=== PATIENT | male | born 1980 | race Caucasian/White ===

== ENCOUNTER 2019-09-13 06:09 | Inpatient (IN) | payer OTHER ==
[~2019-09-13] VITALS: Ht 175.3 cm; Wt 85.0 kg
[2019-09-13] MEDS ORDERED: SODIUM CHLORIDE 0.9% 1,000 ML IV ONE (07:41)
[2019-09-13 08:07] LABS: BASOPHILS % 0.3 % (0.0-2.0); EOSINOPHILS % 0.2 % (0.0-5.0); HEMATOCRIT. 46.4 % (42.0-52.0); HEMOGLOBIN. 15.7 g/dL (14.0-18.0); LYMPHOCYTES % 7.5 % (20.0-50.0); MEAN CORPUSCULAR HEMOGLOBIN 29.5 pg (28.0-32.0); MEAN CORPUSCULAR VOLUME 86.9 fL (80.0-94.0); MEAN PLATELET VOLUME 8.7 fl (7.4-10.4); MONOCYTES % 5.1 % (2.0-8.0); NEUTROPHILS % 86.9 % (40.0-76.0); PLATELET 296 x1000/uL (130-400); RED BLOOD CELL COUNT 5.34 mill/uL (4.7-6.1); RED CELL DISTRIBUTION WIDTH 13.2 % (11.6-14.6)
[2019-09-13 08:14] LABS: CHLORIDE 106 mEq/L (98-107)
[2019-09-13 08:19] LABS: ETHANOL BLOOD < 10 mg/dL
[2019-09-13 09:51] LABS: *BARBITURATES SCREEN URINE NEGATIVE (NEGATIVE); *BENZODIAZEPINES SCREEN URINE NEGATIVE (NEGATIVE); *COCAINE SCREEN URINE NEGATIVE (NEGATIVE); METHADONE URINE SCREEN NEGATIVE (NEGATIVE)
[2019-09-13 09:52] LABS: CANNABINOID URINE SCREEN NEGATIVE (NEGATIVE); OPIATES URINE SCREEN NEGATIVE (NEGATIVE); PHENCYCLIDINE URINE SCREEN NEGATIVE (NEGATIVE)
[2019-09-13 09:53] LABS: *AMPHETAMINES SCREEN URINE NEGATIVE (NEGATIVE)
[2019-09-13] MEDS ORDERED: ASPIRIN 81MG TABLET PO ONE (12:15)
[2019-09-13 12:26] LABS: CREATINE KINASE MB FRACTION 1.7 ng/mL (0.5-3.6)
[2019-09-13] MEDS ORDERED: IPRATROPIUM/ALBUTEROL 0.5-3(2.5)MG/3ML NEB NEB PRN (14:15)
[2019-09-13] MEDS ORDERED: ACETAMINOPHEN 650MG SUPP PR PRN (14:15)
[2019-09-13] MEDS ORDERED: DOCUSATE SODIUM 100MG CAPSULE PO PRN (14:15)
[2019-09-13] MEDS ORDERED: ONDANSETRON HCL 4MG/2ML INJ IV PRN (14:15)
[2019-09-13] MEDS ORDERED: MAGNESIUM/ALUMINUM HYDROXIDE/SIMETHICONE 30ML UDC PO PRN (14:15)
[2019-09-13] MEDS ORDERED: ACETAMINOPHEN 325MG TABLET PO PRN (14:15)
[2019-09-13] MEDS ORDERED: DIPHENHYDRAMINE 50MG/ML VIAL IV PRN (14:15)
[2019-09-13] MEDS ORDERED: LORAZEPAM 0.5MG TABLET PO PRN (14:15)
[2019-09-13] MEDS ORDERED: HYDROCODONE/ACETAMINOPHEN 5/325MG TABLET PO PRN (14:15)
[2019-09-13] MEDS ORDERED: NA PHOS,M-B/NA PHOS,DI-BA ENEMA 118ML PR PRN (14:15)
[2019-09-13] MEDS ORDERED: GUAIFENESIN 200MG/10ML SUGAR FREE UDC PO PRN (14:15)
[2019-09-13] MEDS ORDERED: CLONIDINE 0.1MG TABLET PO PRN (14:15)
[2019-09-13 19:37] LABS: CREATINE KINASE MB FRACTION 1.8 ng/mL (0.5-3.6)
[2019-09-13 23:00] VITALS: BP 152/100
[2019-09-14 00:02] VITALS: BP 150/100
[2019-09-14] MEDS: CARVEDILOL 3.125 MG TABLET PO SCH ×4 (00:28→21:24)
[2019-09-14 04:00] VITALS: BP 147/86
[2019-09-14 06:47] LABS: BASOPHILS % 0.3 % (0.0-2.0); EOSINOPHILS % 0.8 % (0.0-5.0); HEMATOCRIT. 43.1 % (42.0-52.0); HEMOGLOBIN. 14.6 g/dL (14.0-18.0); LYMPHOCYTES % 25.6 % (20.0-50.0); MEAN CORPUSCULAR HEMOGLOBIN 29.7 pg (28.0-32.0); MEAN CORPUSCULAR VOLUME 87.5 fL (80.0-94.0); MEAN PLATELET VOLUME 8.7 fl (7.4-10.4); NEUTROPHILS % 64.3 % (40.0-76.0); PLATELET 278 x1000/uL (130-400); RED BLOOD CELL COUNT 4.93 mill/uL (4.7-6.1); RED CELL DISTRIBUTION WIDTH 13.5 % (11.6-14.6)
[2019-09-14 07:32] LABS: VITAMIN B12 SERUM 360 pg/mL (211-911)
[2019-09-14 07:42] LABS: CHLORIDE 108 mEq/L (98-107)
[2019-09-14 08:00] VITALS: BP 143/96
[2019-09-14 08:03] LABS: HDL CHOLESTEROL 57 mg/dL (40-59)
[2019-09-14 08:06] LABS: TOTAL IRON BINDING CAPACITY 332 ug/dL (250-450)
[2019-09-14 08:14] LABS: LDL CHOLESTEROL 116 mg/dL (5-100)
[2019-09-14] MEDS: ASPIRIN 81MG EC TABLET PO SCH ×4 (09:00→12:40)
[2019-09-14] MEDS: ENOXAPARIN 40MG/0.4ML SYR SUBCUT SCH (09:00)
[2019-09-14] MEDS ORDERED: REGADENOSON 0.4 MG/5 ML IV SCH (09:00)
[2019-09-14 09:01] LABS: CLARITY URINE CLEAR (CLEAR); COLOR URINE YELLOW (YELLOW); KETONES URINE NEGATIVE (NEGATIVE); LEUKOCYTE ESTERASE URINE NEGATIVE (NEGATIVE); NITRITE URINE NEGATIVE (NEGATIVE); OCCULT BLOOD URINE NEGATIVE (NEGATIVE); PH URINE 7.5 (4.5-8.0); PROTEIN URINE 1+ (NEGATIVE); SPECIFIC GRAVITY URINE 1.017 (1.005-1.030); UROBILINOGEN URINE 0.2 E.U./dL (0.2-1.0)
[2019-09-14] MEDS ORDERED: REGADENOSON 0.4 MG/5 ML IV ONE (10:19)
[2019-09-14 12:19] VITALS: BP 157/92
[2019-09-14] MEDS ORDERED: AMLODIPINE 5MG TABLET PO SCH (15:45)
[2019-09-14 16:00] VITALS: BP_SYST 141; BP_SYST 156; BP_DIAS 109; BP_DIAS 90
[2019-09-14 20:00] VITALS: BP 150/92
[2019-09-15] MEDS ORDERED: DEXT 5%/0.45% NACL 1000ML 1,000 ML IV SCH
[2019-09-15 00:21] VITALS: BP 141/90
[2019-09-15 04:00] VITALS: BP 150/102
[2019-09-15 05:44] VITALS: BP 160/108
[2019-09-15 05:45] VITALS: BP_SYST 136; BP_SYST 145; BP_SYST 160; BP_DIAS 102; BP_DIAS 112
[2019-09-15 06:45] LABS: CHLORIDE 106 mEq/L (98-107)
[2019-09-15 06:51] LABS: HEMATOCRIT 45.7 % (42.0-52.0); HEMOGLOBIN 15.5 g/dL (14.0-18.0); MEAN CORPUSCULAR HEMOGLOBIN 29.7 pg (28.0-32.0); MEAN CORPUSCULAR VOLUME 87.5 fL (80.0-94.0); PLATELET 306 x1000/uL (130-400); RED BLOOD CELL COUNT 5.22 mill/uL (4.7-6.1); RED CELL DISTRIBUTION WIDTH 13.5 % (11.6-14.6)
[2019-09-15] MEDS: ENOXAPARIN 40MG/0.4ML SYR SUBCUT SCH (09:00)
[2019-09-15] MEDS ORDERED: AMLODIPINE 5MG TABLET PO SCH (09:00)
[2019-09-15] MEDS ORDERED: ASPI-1497 MT (10:00)
[2019-09-15] MEDS ORDERED: COR3 MT (10:00)
[2019-09-15] MEDS ORDERED: AMLO5TAB4 MT (10:00)
[2019-09-15] MEDS: ASPIRIN 81MG EC TABLET PO SCH (10:07)
[2019-09-15] MEDS: CARVEDILOL 3.125 MG TABLET PO SCH (10:08)
[2019-09-15 10:58] VITALS: BP 146/96
[2019-09-16] MEDS ORDERED: AMLODIPINE 10MG TABLET PO SCH (09:00)
== END 2019-09-15 12:45 | disposition home or self-care (01) | DRG 73 ==
LOC: ER 06:09 → EDBEDREQ 12:18 → EDBEDREQTM 12:18 → SUPCPDRO 14:06 → ENRESERV 20:29 → 6WST 23:27
PROVIDERS: ADMIT Internal Medicine; ATTEND Internal Medicine
DX: G90.8 Other disorders of autonomic nervous system (principal); I21.4 Non-ST elevation (NSTEMI) myocardial infarction; E78.5 Hyperlipidemia, unspecified; I10 Essential (primary) hypertension; W18.39XA Other fall on same level, initial encounter; Y93.89 Activity, other specified; Y92.89 Other specified places as the place of occurrence of the external cause; Y99.8 Other external cause status
CPT/HCPCS: 36415; 71045; 78452; 80048; 80053; 80061; 80305; 80320; 81003; 82550; 82553; 82607; 83036; 83540; 83550; 83735; 83880; 84439; 84443; 84484; 85025; 85027; 85379; 93005; 93017; 93306; 93880; 93970; 99285; A9500; J1650; J2785; J7030; G0480